=== PATIENT | female | born 1945 | race Caucasian/White ===

== ENCOUNTER 2024-08-06 15:14 | Emergency (ER) | payer MEDICARE, SELFPAY ==
[2024-08-06 15:16] VITALS: BP 141/61; PULSE 67; RESP 16; TEMP 36.8; O2SAT 97; BMI 23.6
--- NOTE | 2024-08-06 16:25 | CT_ITS ---
STUDY: CT Abdomen And Pelvis W/ Contrast Injection 08/06/2024 6:43 PM REASON FOR EXAM: Female, 78 years old. Abdominal pain RUQ abdominal Individualized dose optimization techniques were used for this CT. COMPARISON: None. TECHNIQUE: CT Abdomen And Pelvis W/ Contrast Injection IV 75mL [id number] FINDINGS: There are atherosclerotic calcifications of visualized coronary arteries. The visualized portions of the heart are within normal limits. Hypodensity in the right lobe of the liver may be a cyst or small hemangioma. Normal gallbladder and extrahepatic biliary system. Normal spleen. Normal pancreas. Normal bilateral adrenal glands. There are hypodensities in the right kidney. These are consistent for cysts. No follow up required. There are hypodensities in the left kidney. These are consistent for cysts. No follow up required. Normal visualized stomach. Normal small intestine. Stool throughout the colon. There is non-visualization of the appendix. There are calcifications of the abdominal aorta. This is consistent for atherosclerotic disease. There is NO abdominal aortic aneurysm. Vascular workup can be obtained based on clinical correlation. Normal inferior vena cava. Subcentimeter mesenteric lymph nodes. Normal urinary bladder. Normal abdominal wall. There are diffuse degenerative changes of the visualized lumbar spine. There is bilateral neural foraminal stenosis at L4-5 and L5-S1. Total left hip arthroplasty. Degenerative findings of the right hip. CT/Abdomen/Pelvis W IV Cont ONLY IMPRESSION: (NOT LISTED IN ORDER OF SIGNIFICANCE) There are no acute findings. Other findings as above. Electronically Signed: Figueroa Guzman MD at 18:46 EDT ,
--- NOTE | 2024-08-06 16:31 | EKG12_ITS ---
Test Reason : ABDOMINAL PAIN Blood Pressure : / mmHG Vent. Rate : 064 BPM Atrial Rate : 064 BPM P-R Int : 134 ms QRS Dur : 128 ms QT Int : 446 ms P-R-T Axes : 069 170 034 degrees QTc Int : 460 ms Atrial-sensed ventricular-paced rhythm Abnormal ECG Confirmed by Umer Landon ([id number]), department editor SHANNAN DEE ([id number]) on 08/08/2024 7:53:35 AM Referred By: Confirmed By:Umre Landon
--- NOTE | 2024-08-06 16:38 | EDS_ITS ---
HPI History of Present Illness Chief Complaint: Abd Pain Narrative Narrative: Chief complaint and HPI: Right upper quadrant abdominal pain. 78-year-old female with no significant past medical history presents for evaluation of right upper quadrant abdominal pain. Patient states she woke up with the pain on Wednesday and has been present ever since. She states she usually does not eat fried or fatty foods but did have an onion ring Wednesday night. She denies spicy foods. Denies history of gallbladder disease or ulcers. Denies daily NSAID use or alcohol use. Denies GERD. Denies any fever, chills, chest pain, shortness of breath, lower abdominal pain, dysuria, hematuria, constipation, diarrhea. Patient states the pain worsens with palpation. She went to an urgent care was sent to the emergency department. PCP did write her for 20 mg of omeprazole daily starting yesterday. She states she took 1 dose but then stopped taking it as she does not have any acid reflux. Review of systems: See HPI Medications: As listed on the chart Allergies: As listed on the chart PFSH: Per chart Vital signs: As listed on the chart. Reviewed. Physical exam: Gen: A&O x3, NAD Head: Normocephalic, atraumatic Eyes: No sclera icterus, conjunctiva clear ENT: Moist mucous membranes Neck: Trachea midline, No JVD CV: RRR, no murmurs, no peripheral edema Resp: Lungs CTA BL, no w/r/c GI: Abd soft, non-distended, tender to palpation of the right upper quadrant, positive Cai sign, positive voluntary guarding, no rebound or rigidity Musc: Full ROM, no deformity Skin: Warm, dry Neuro: Alert, oriented, grossly intact, sensation intact Psych: Cooperative, appropriate mood and affect [facility] Medical History (Updated 08/06/24 @ 21:[address] 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 Hypothyroidism Hyperthyroidism Non-smoker Sleep apnea CPAP (continuous positive airway pressure) dependence Irregular heart beat ICD (implantable cardioverter-defibrillator) in place Pacemaker Congestive heart failure (CHF) Hypertension Chest pain Migraines Home Medications ?Medication ?Instructions ?Recorded ?Last Taken ?Type aspirin 81 mg tablet,delayed 81 mg PO DAILY 08/06/24 Unknown History release (Adult Low Dose Aspirin) atorvastatin 40 mg tablet 40 mg PO QHS 08/06/24 Unknown History carvedilol 25 mg tablet 50 mg PO BID 08/06/24 Unknown History co [id number] oil-omega 3-E 100 cap PO BID 08/06/24 Unknown History digoxin 125 mcg (0.125 mg) tablet 125 mcg PO DAILY 08/06/24 Unknown History furosemide 20 mg tablet 20 mg PO DAILY 08/06/24 Unknown History levothyroxine 75 mcg tablet 75 mcg PO DAILY 08/06/24 Unknown History (Synthroid) losartan 50 mg tablet 50 mg PO BID 08/06/24 Unknown History myrigwcc-cdq-pjhu-FA-vit K-lut 1 tab PO DAILY 08/06/24 Unknown History omeprazole 20 mg capsule,delayed 20 mg PO DAILY 08/06/24 Unknown History release zolpidem 10 mg tablet 10 mg PO QHS PRN PRN sleep 08/06/24 Unknown History Allergy/AdvReac Type Severity Reaction Status Date / Time Sulfa (Sulfonamide Allergy Mild Hives Verified 08/06/24 15:15 Antibiotics) Surgical History (Updated 08/06/24 @ 17:31 by Merissa Cordova) History of left hip replacement History of appendectomy Social History Smoking Status: Never smoker EXAM Physical Exam Const Vital Signs: 08/06/24 15:16 08/06/24 19:00 08/06/24 21:00 Temperature 98.2 F Temperature Source Oral Pulse Rate 67 67 70 Respiratory Rate 16 18 16 Blood Pressure 141/61 H 163/71 H 155/65 H Blood Pressure Mean 87 101 95 Pulse Ox 97 97 99 Oxygen Delivery Method Room Air Room Air Room Air MDM MDM MDM Narrative Medical decision making narrative: 78-year-old female presents for evaluation of right upper quadrant abdominal pain. Onset was Wednesday. Patient is tender to palpation of the right upper quadrant. See physical exam findings. Patient declining any pain medication. Differential diagnosis includes but is not limited to cholecystitis, cholelithiasis, cholangitis, pancreatitis, PUD, gastritis. Suspect less likely ACS. I do not have ultrasound available at our hospital at this time. Will get CT abdomen and pelvis as well as abdominal pain workup. CBC without leukocytosis or anemia. CMP with mild hyponatremia. No RESHMA. No transaminitis . Troponin unremarkable. Lipase unremarkable.CT abdomen and pelvis shows hypodensity in the right lobe of the liver may be cyst or small hemangioma. Normal gallbladder and biliary system. Normal pancreas. There are hypodensities in the right and left kidneys consistent with cysts. No further follow-up required. On reexamination, patient is still very tender to the right upper quadrant. She still has a positive Cai sign. Therefore we will call supervisor sound technician and for right upper quadrant ultrasound as this is a better examination of the gallbladder. Right upper quadrant ultrasound unremarkable for any gallbladder pathology. Per supervisor sound technician patient has a negative sonographic Cai sign. I have a hard time believing this given that patient is tender with any palpation of the right upper quadrant. She has a consistent positive Cai sign for me. Patient states she was in pain the entire time they were performing the ultrasound. No clear etiology for patient's pain at this time. I still suspect gallbladder pathology and feel that the patient would benefit from a HIDA scan. This was discussed with the patient. Patient has no interest in being admitted to the hospital. She is willing to let me discuss her case with the general surgeon on-call. I did speak with Dr. Lopez about the patient. He agrees that patient may benefit from HIDA scan. Patient is to call the office tomorrow for close follow-up. Patient was educated on continuing the omeprazole as this could be an ulcer or gastritis. I offered to increase her omeprazole dose. She states that she does not want to take the omeprazole. She was educated on Tylenol as needed for pain. Return precautions explained. She confirmed understanding. Impression: 1. Right upper quadrant abdominal pain, unclear etiology. Gallbladder disease versus gastritis versus PUD 2. Hypodensity in the right lobe of the liver, cyst versus small hemangioma 3. Bilateral renal cysts Lab Data Labs: Laboratory Results - last 24 hr 08/06/24 08/06/24 16:00 17:00 WBC 8.1 RBC 4.35 Hgb 12.8 Hct 38.9 MCV 89.4 MCH 29.4 MCHC 32.9 RDW Std Deviation 42.9 RDW Coeff of Soren 13.0 Plt Count 318 MPV 9.7 Immature Gran % (Auto) 0.200 Neut % (Auto) 64.1 Lymph % (Auto) 23.1 [place] % (Auto) 9.3 Eos % (Auto) 2.3 Baso % (Auto) 1.0 Absolute Neuts (auto) 5.2 Absolute Lymphs (auto) 1.87 Nucleated RBC % 0 Sodium 139 Potassium 3.2 L Chloride 103 Carbon Dioxide 31.0 Anion Gap 5 BUN 13 Creatinine 0.69 Estim Creat Clear Calc 43.73 Est GFR (MDRD) Af Amer 105 Est GFR (MDRD) Non-Af 87 BUN/Creatinine Ratio 18.8 Glucose 93 Lactic Acid 0.9 Calcium 8.7 Total Bilirubin 1.00 AST 14 L ALT 26 Alkaline Phosphatase 92 Troponin I High Sens 8 Total Protein 7.3 Albumin 3.7 Globulin 3.6 Albumin/Globulin Ratio 1.0 Lipase 48 Radiography Diagnostic Testing: Clinical Impression(s) from Imaging Studies Abdomen/Pelvis CT 08/06/24 16:25 IMPRESSION: (NOT LISTED IN ORDER OF SIGNIFICANCE) There are no acute findings. Other findings as above. Electronically Signed: Figueroa Guzman MD at 18:46 EDT , Gallbladder Ultrasound 08/06/24 19:09 IMPRESSION: No acute findings. Note: Renal size measurements and size measurements of other organs etc may vary depending on modality and test and research reactor operator dependent variations in measurements. (i.e. Measuring a kidney on an US does not correlate with an exact same measurement on a CT.) Electronically Signed: Figueroa Guzman MD at 20:44 EDT , Discharge Plan Triage Chief Complaint: Abd Pain ED Provider: Omi Gutierrez Dx/Rx/DC Orders Clinical Impression: Right upper quadrant abdominal pain of unknown etiology Instructions: ED Abdominal Pain Unkn Cause Fem Prescriptions: No Action atorvastatin 40 mg tablet 40 mg PO QHS losartan 50 mg tablet 50 mg PO BID carvedilol 25 mg tablet 50 mg PO BID levothyroxine [Synthroid] 75 mcg tablet 75 mcg PO DAILY omeprazole 20 mg capsule,delayed release(DR/EC) 20 mg PO DAILY digoxin 125 mcg (0.125 mg) tablet 125 mcg PO DAILY furosemide 20 mg tablet 20 mg PO DAILY zolpidem 10 mg tablet 10 mg PO QHS PRN PRN (Reason: sleep) aspirin [Adult Low Dose Aspirin] 81 mg tablet,delayed release (DR/EC) 81 mg PO DAILY koefptsf-ija-awaf-FA-vit K-lut [Centrum Silver Women] 1 tab PO DAILY co [id number] oil-omega 3-E 100 cap PO BID Primary Care Provider: Martín Bonilla Referrals: Martín Bonilla MD [Primary Care Provider] - 3-5 Days Jacinto Lopez MD [Med Staff - Active Staff] - 2 Days () Activity Restrictions/Additional Instructions: Call Dr. Lopez office tomorrow to make an appointment. Return back to the ED if symptoms worsen or change. Print Language: Angolan Disposition Disposition: Home, Self Care Discharge Date/Time: 08/06/24 21:37
[2024-08-06 16:49] LABS: Absolute Lymphocyte Count 1.87 X10^3/uL (0.83-4.51); Absolute Neutrophil Count 5.2 X10^3/uL (2.0-7.7); Basophil# 0.08 X10^3/uL; Eosinophil# 0.19 X10^3/uL; Eosinophils% 2.3 % (0-5); Hematocrit 38.9 % (37-47); Hemoglobin 12.8 g/dL (12.0-15.0); Lymphocyte # 1.87 X10^3/ul (0.83-4.51); Lymphocyte % 23.1 % (19-41); Mean Corp Hgb Conc 32.9 g/dL (32-36); Mean Corpuscular Hgb 29.4 pg (27.0-32.0); Mean Corpuscular Volume 89.4 fL (81-99); Mean Platelet Vol. 9.7 fl (6.2-12.0); Monocyte# 0.75 X10^3/uL; Monocyte% 9.3 % (0-10); NRBC Flagged by Analyzer 0 % (0-5); Neutrophil # 5.18 X10^3/uL (2.7-7.7); Neutrophil % 64.1 % (47-70); Platelet Count 318 K/mm3 (150-450); RBC Distribution Width SD 42.9 fl (35.1-43.9); Red Blood Count 4.35 M/mm3 (4.2-5.4); White Blood Count 8.1 K/mm3 (4.4-11.0)
[2024-08-06 17:07] LABS: AST(SGOT) 14 U/L (15-37); Alanine Aminotransfer ALT/SGPT 26 U/L (13-56); Albumin, Serum 3.7 g/dL (3.2-5.0); Alkaline Phosphatase 92 U/L (45-117); Anion Gap 5 (5-15); BUN 13 mg/dL (7-18); BUN/Creat Ratio 18.8 RATIO (10-20); Calcium,Total 8.7 mg/dL (8.5-10.1); Chloride 103 mmol/L (98-107); Creatinine, Serum 0.69 mg/dL (0.55-1.02); EST Glomerular Filtration Rate 87 mL/min (>60); Est Glom Filt Rate - Afr Amer 105 mL/min (>60); Estimated Creatinine Clearance 43.73 ml/min; Globulin 3.6 g/dL (2.2-4.2); Glucose 93 mg/dL (74-106); Lipase 48 U/L (13-75); Potassium 3.2 mmol/L (3.5-5.1); Protein, Total 7.3 g/dL (6.4-8.2); Sodium Level 139 mmol/L (136-145); Troponin-I HS 8 pg/mL (3.0-54.0)
[2024-08-06 17:31] LABS: Lactic Acid 0.9 mmol/L (0.4-1.9)
[2024-08-06 19:00] VITALS: BP 163/71; PULSE 67; RESP 18; O2SAT 97
--- NOTE | 2024-08-06 19:09 | US_ITS ---
STUDY: ABDOMINAL ULTRASOUND - RIGHT UPPER QUADRANT REASON FOR VISIT: Female, 78 years old. ABDOMEN PAIN PAIN TECHNIQUE: Ultrasound evaluation of the right upper quadrant was performed with real-time and static braun-scale imaging. TECHNICAL QUALITY: Adequate. COMPARISON: None FINDINGS: Liver: There is normal echogenicity of the liver. The bile ducts are within normal limits. There is hepatic color flow. The direction of portal flow is hepatopetal. There is no demonstrated mass lesion. Gallbladder: Normal distended gallbladder. The gallbladder wall measures 2.2 mm. There is a negative sonographic Cai''s sign. There is no pericholecystic fluid. There are no gallstones. Common Bile Duct (C.B.D.): The common bile duct measures ( in mm): 6.2 Pancreas: Normal size of the head, body of the pancreas. There is normal echogenicity of the pancreas. There is no demonstrated pancreatic mass or cyst. Right Kidney: Normal size of the right kidney. The right kidney measures 9.7 cm. . Normal renal cortex. There is no demonstrated renal mass or cyst. There is no right hydronephrosis. Aorta: It is not visualized. There is too much overlying bowel gas. . US/Gallbladder IMPRESSION: No acute findings. Note: Renal size measurements and size measurements of other organs etc may vary depending on modality and tunnel elastic operator zigzag dependent variations in measurements. (i.e. Measuring a kidney on an US does not correlate with an exact same measurement on a CT.) Electronically Signed: Figueroa Guzman MD at 20:44 EDT ,
[2024-08-06 21:00] VITALS: BP 155/65; PULSE 70; RESP 16; O2SAT 99
--- NOTE | 2024-08-06 21:09 | NURSING ---
Surgery paged to speak with ed doc.
== END 2024-08-06 21:37 | disposition home or self-care (01) ==
PROVIDERS: Emergency Provider Surgery; PCP Family Medicine; Visit Provider Surgery
DX: R10.11 Right upper quadrant pain (principal); I11.0 Hypertensive heart disease with heart failure; I50.9 Heart failure, unspecified; N28.1 Cyst of kidney, acquired; R10.811 Right upper quadrant abdominal tenderness; Z95.810 Presence of automatic (implantable) cardiac defibrillator; G47.30 Sleep apnea, unspecified; Z99.89 Dependence on other enabling machines and devices; Z79.82 Long term (current) use of aspirin; Z79.899 Other long term (current) drug therapy; E03.9 Hypothyroidism, unspecified; Z79.890 Hormone replacement therapy; Z96.642 Presence of left artificial hip joint; Z90.49 Acquired absence of other specified parts of digestive tract; K76.89 Other specified diseases of liver
CPT/HCPCS: 74177; 76705; 80053; 83605; 83690; 84484; 85025; 93005; 99283; Q9967; A4216